=== PATIENT | male | born 1955 | race Two or more races ===

== ENCOUNTER 2020-05-22 00:47 | Emergency (ER) | payer OTHER ==
[~2020-05-22] VITALS: Ht 172.7 cm; Wt 104.3 kg
== END 2020-05-22 04:00 ==
LOC: ER 00:47
DX: R04.0 Epistaxis (principal)

== ENCOUNTER 2020-05-29 17:07 | Emergency (ER) | payer OTHER ==
[~2020-05-29] VITALS: Ht 172.7 cm; Wt 111.1 kg
[2020-05-29] MEDS ORDERED: CLINDAMYCIN HC300 MG PO (17:39)
[2020-05-29] MEDS ORDERED: HYDROCHLOROTH12.5 MG (17:39)
[2020-05-29] MEDS ORDERED: ATORVASTATIN CA10 MG (17:39)
[2020-05-29] MEDS ORDERED: LOSARTAN POTAS100 MG (17:39)
[2020-05-29] MEDS ORDERED: TERAZOSIN HCL5 MG (17:40)
[2020-05-29] MEDS ORDERED: LANTUS INJ 100 (17:40)
[2020-05-29] MEDS ORDERED: ARTHRITIS PAIN650 MG (17:40)
[2020-05-29] MEDS ORDERED: SPIRONOLACTONE25 MG (17:40)
[2020-05-29] MEDS ORDERED: METFORMIN HCL1000 M3 (17:40)
== END 2020-05-29 21:51 | disposition home or self-care (01) ==
LOC: ER 17:07
DX: R04.0 Epistaxis (principal)